=== PATIENT | female | born 1975 | race Hispanic/Latino ===

== ENCOUNTER 2022-05-31 19:53 | Emergency (ER) | payer BC ==
[2022-05-31] MEDS ORDERED: Ibuprofen 800 MG TAB ONE (21:16)
== END 2022-05-31 21:24 | disposition home or self-care (01) ==
LOC: ERS 19:53
DX: U07.1 COVID-19 (principal)
CPT/HCPCS: 87804; 99283; U0003; U0005

== ENCOUNTER 2022-07-01 16:56 | Emergency (ER) | payer BC ==
[2022-07-01] MEDS ORDERED: diphenhydrAMINE 50 MG/ML VIAL ONE (17:37)
[2022-07-01] MEDS ORDERED: Metoclopramide HCl 10 MG/2 ML VIAL ONE (17:37)
[2022-07-01] MEDS ORDERED: Magnesium 2 GM/50 ML BAG (IN WATER) ONE (17:37)
[2022-07-01 17:50] LABS: #Lymphocytes 3.2 thou/uL (1.20-3.40); #Monocytes 0.6 thou/uL (0.11-0.59); #Neutrophils 6.7 thou/uL (1.40-6.50); %Basophils 0.4 % (0.0-1.0); %Eosinophils 8.7 % (0.0-10.0); %Lymphocytes 27.4 % (21.0-51.0); %Monocytes 5.4 % (0.0-10.0); %Neutrophils 58.1 % (42.0-75.0); Hemoglobin 14.5 g/dL (12.0-16.0); Mean Corpuscular HGB CONC 35.7 g/dL (32.0-36.0); Mean Corpuscular Hemoglobin 32.8 pg (27.0-31.0); Mean Corpuscular Volume 91.8 fL (78.0-98.0); Platelet Count 267 thou/uL (130-400); RBC Distribution Width 11.6 % (11.5-14.5); Red Blood Cell (RBC) Count 4.41 mill/uL (4.20-5.40); White Blood Cell (WBC) Count 11.5 thou/uL (4.8-10.8)
[2022-07-01 18:09] LABS: ALT (SGPT) 81 U/L (8-55); AST (SGOT) 53 U/L (5-34); Albumin 3.9 g/dL (3.5-5.0); Alkaline Phosphatase 59 U/L (40-110); Anion Gap 14 mmol/L (10-20); BUN (Urea Nitrogen) 16 mg/dL (7.0-18.7); Bilirubin, Total 0.4 mg/dL (0.2-1.2); Calc. Creatinine Clearance 0 mL/min (70-130); Calcium 9.1 mg/dL (7.8-10.44); Carbon Dioxide 23 mmol/L (22-29); Chloride 104 mmol/L (98-107); Estimated GFR 105; Glucose 117 mg/dL (70-105); Potassium 3.8 mmol/L (3.5-5.1); Protein, Total 7.9 g/dL (6.0-8.3); Sodium 137 mmol/L (136-145)
[2022-07-01 18:10] LABS: BHCG - Serum Negative (NEGATIVE); Pregs Control Background? CLEAR/WHITE (CLR/WHITE); Pregs Control Bar Appear? YES (CONTROL BAR)
== END 2022-07-01 20:00 | disposition home or self-care (01) ==
LOC: ERS 16:56
DX: R51.9 Headache, unspecified (principal); R79.89 Other specified abnormal findings of blood chemistry; Z86.16 Personal history of COVID-19; G44.52 New daily persistent headache (NDPH)
CPT/HCPCS: 70450; 80053; 84484; 84703; 85025; 85379; 86140; 93005; 96365; 96375; J1200; J2765; J3475

== ENCOUNTER 2022-07-04 03:33 | Inpatient (IN) | payer BC ==
[2022-07-04] MEDS ORDERED: Metoclopramide HCl 10 MG/2 ML VIAL ONE (05:00)
[2022-07-04] MEDS ORDERED: Midazolam HCl 2 mg/2 ml Vial ONE ×2 (05:00→07:16)
[2022-07-04] MEDS ORDERED: Ketorolac Tromethamine 30 MG/ML VIAL ONE (05:00)
[2022-07-04] MEDS ORDERED: Magnesium 2 GM/50 ML BAG (IN WATER) ONE (07:26)
[2022-07-04 07:47] LABS: ALT (SGPT) 95 U/L (8-55); AST (SGOT) 72 U/L (5-34); Albumin 3.9 g/dL (3.5-5.0); Alkaline Phosphatase 71 U/L (40-110); Anion Gap 15 mmol/L (10-20); BUN (Urea Nitrogen) 15 mg/dL (7.0-18.7); Bilirubin, Total 0.3 mg/dL (0.2-1.2); Calc. Creatinine Clearance 0 mL/min (70-130); Calcium 9.5 mg/dL (7.8-10.44); Carbon Dioxide 26 mmol/L (22-29); Chloride 102 mmol/L (98-107); Estimated GFR 102; Globulin 4.2 g/dL (2.4-3.5); Glucose 118 mg/dL (70-105); Lipase 103 U/L (8-78); Potassium 3.7 mmol/L (3.5-5.1); Protein, Total 8.1 g/dL (6.0-8.3); Sodium 139 mmol/L (136-145)
[2022-07-04 07:48] LABS: CKMB 1.4 ng/mL (0-6.6); Troponin I Less than 0.010 ng/mL (< 0.028)
[2022-07-04] MEDS ORDERED: acetaZOLAMIDE Sodium 500 mg Vial IVP SCH (08:45)
[2022-07-04 08:59] LABS: CSF, Glucose 58 mg/dl (40-70); CSF, Protein 24 mg/dL (15-40)
[2022-07-04 09:05] LABS: #Basophils 0.1 thou/uL (0.0-0.2); #Eosinphils 1.2 thou/uL (0.0-0.7); #Lymphocytes 4.6 thou/uL (1.20-3.40); #Monocytes 0.6 thou/uL (0.11-0.59); #Neutrophils 6.8 thou/uL (1.40-6.50); %Basophils 0.7 % (0.0-1.0); %Eosinophils 8.7 % (0.0-10.0); %Lymphocytes 34.5 % (21.0-51.0); %Monocytes 4.7 % (0.0-10.0); %Neutrophils 51.3 % (42.0-75.0); Hemoglobin 15.3 g/dL (12.0-16.0); Mean Corpuscular HGB CONC 35.1 g/dL (32.0-36.0); Mean Corpuscular Hemoglobin 32.3 pg (27.0-31.0); Mean Corpuscular Volume 92.2 fL (78.0-98.0); Mean Platelet Volume 8.2 fL (7.4-10.4); Platelet Count 271 thou/uL (130-400); RBC Distribution Width 11.7 % (11.5-14.5); Red Blood Cell (RBC) Count 4.72 mill/uL (4.20-5.40); White Blood Cell (WBC) Count 13.3 thou/uL (4.8-10.8)
[2022-07-04 09:21] LABS: CSF RBC Count - Manual 0 /cu.mm (None Seen); CSF Source CSF; CSF WBC/NonHematics Count-Man 0 /cu.mm (0-5); Clarity Clear (Clear); Tube # 2
[2022-07-04 09:22] LABS: CSF RBC Count - Manual 0 /cu.mm (None Seen); CSF Source CSF; CSF WBC/NonHematics Count-Man 0 /cu.mm (0-5); Clarity Clear (Clear); Tube # 4
[2022-07-04 09:24] LABS: Troponin I Less than 0.010 ng/mL (< 0.028)
[2022-07-04 10:24] LABS: Color Of CSF Supernatant COLORLESS (Colorless); Tube # 1; Unspun CSF Color COLORLESS (Colorless)
[2022-07-04] MEDS ORDERED: Ondansetron ODT 4 MG TAB PO PRN (10:44)
[2022-07-04 11:42] VITALS: BMI 35.3
[2022-07-04 12:33] LABS: Troponin I Less than 0.010 ng/mL (< 0.028)
[2022-07-04] MEDS ORDERED: HYDROcodone/Acetaminophen 5/325 mg Tablet PO PRN (13:37)
[2022-07-04] MEDS ORDERED: Morphine 2 MG/ML VIAL SLOW IVP SCH (13:45)
[2022-07-04] MEDS ORDERED: Iopamidol-370 76% 500 ML 1 ML ONE (14:01)
[2022-07-04] MEDS: HYDROcodone/Acetaminophen 5/325 mg Tablet PO PRN (16:18)
[2022-07-04] MEDS: acetaZOLAMIDE Sodium 500 mg Vial IVP SCH (21:46)
[2022-07-04] MEDS: Sterile Water 10 ML VIAL IVP SCH (21:46)
[2022-07-04] MEDS: Acetaminophen 325 MG TAB PO PRN (21:55)
[2022-07-05 04:29] LABS: #Lymphocytes 2.2 thou/uL (1.20-3.40); #Monocytes 0.5 thou/uL (0.11-0.59); #Neutrophils 7.7 thou/uL (1.40-6.50); %Basophils 0.3 % (0.0-1.0); %Eosinophils 8.6 % (0.0-10.0); %Lymphocytes 19.2 % (21.0-51.0); %Monocytes 4.6 % (0.0-10.0); %Neutrophils 67.3 % (42.0-75.0); Hemoglobin 14.8 g/dL (12.0-16.0); Mean Corpuscular HGB CONC 33.8 g/dL (32.0-36.0); Mean Corpuscular Hemoglobin 31.6 pg (27.0-31.0); Mean Corpuscular Volume 93.4 fL (78.0-98.0); Mean Platelet Volume 7.6 fL (7.4-10.4); Platelet Count 284 thou/uL (130-400); Red Blood Cell (RBC) Count 4.67 mill/uL (4.20-5.40); White Blood Cell (WBC) Count 11.4 thou/uL (4.8-10.8)
[2022-07-05 04:54] LABS: Albumin 3.8 g/dL (3.5-5.0); Anion Gap 11 mmol/L (10-20); BUN (Urea Nitrogen) 8 mg/dL (7.0-18.7); Bilirubin, Total 0.5 mg/dL (0.2-1.2); Calc. Creatinine Clearance 119 mL/min (70-130); Calcium 9.4 mg/dL (7.8-10.44); Carbon Dioxide 24 mmol/L (22-29); Chloride 106 mmol/L (98-107); Estimated GFR 94; Glucose 119 mg/dL (70-105); Potassium 4.2 mmol/L (3.5-5.1); Protein, Total 7.4 g/dL (6.0-8.3); Sodium 137 mmol/L (136-145)
[2022-07-05 04:55] LABS: ALT (SGPT) 149 U/L (8-55); AST (SGOT) 82 U/L (5-34); Alkaline Phosphatase 66 U/L (40-110); Globulin 3.6 g/dL (2.4-3.5)
[2022-07-05] MEDS: acetaZOLAMIDE Sodium 500 mg Vial IVP SCH ×2 (08:47→20:51)
[2022-07-05] MEDS: HYDROcodone/Acetaminophen 5/325 mg Tablet PO PRN (08:48)
[2022-07-05] MEDS: Sterile Water 10 ML VIAL IVP SCH ×2 (08:48→20:52)
[2022-07-05] MEDS: Acetaminophen 325 MG TAB PO PRN ×2 (13:19→20:51)
[2022-07-05] MEDS ORDERED: Prochlorperazine 10 MG/2 ML VIAL IVP SCH (14:45)
[2022-07-05] MEDS ORDERED: diphenhydrAMINE 50 MG/ML VIAL IVP SCH (15:00)
[2022-07-06 05:13] LABS: Anion Gap 12 mmol/L (10-20); BUN (Urea Nitrogen) 14 mg/dL (7.0-18.7); Calc. Creatinine Clearance 108 mL/min (70-130); Calcium 9.3 mg/dL (7.8-10.44); Carbon Dioxide 22 mmol/L (22-29); Chloride 109 mmol/L (98-107); Estimated GFR 84; Glucose 115 mg/dL (70-105); Potassium 3.9 mmol/L (3.5-5.1); Sodium 139 mmol/L (136-145)
[2022-07-06] MEDS: Fioricet 325/50/40 mg Tablet PO PRN ×4 (05:44→21:20)
[2022-07-06] MEDS: acetaZOLAMIDE Sodium 500 mg Vial IVP SCH ×2 (08:47→21:15)
[2022-07-06] MEDS: Sterile Water 10 ML VIAL IVP SCH ×2 (08:50→21:16)
[2022-07-06] MEDS: Ondansetron PF 4 MG/2 ML Vial IVP PRN (09:50)
[2022-07-06] MEDS ORDERED: Iopamidol-370 76% 500 ML 1 ML ONE (10:47)
[2022-07-06] MEDS ORDERED: Enoxaparin Sodium 40 MG/0.4 ML SYRINGE SC SCH (21:00)
[2022-07-06] MEDS: Ibuprofen 800 MG TAB PO PRN (21:13)
[2022-07-07] MEDS ORDERED: Fluticasone Propionate Nasal Spray 16 gm Bottle NASAL SCH (09:00)
[2022-07-07] MEDS: Ibuprofen 800 MG TAB PO PRN ×2 (10:00→18:33)
[2022-07-07] MEDS: Fioricet 325/50/40 mg Tablet PO PRN ×3 (10:01→18:33)
[2022-07-07] MEDS: Ondansetron PF 4 MG/2 ML Vial IVP PRN (10:05)
[2022-07-07] MEDS: acetaZOLAMIDE Sodium 500 mg Vial IVP SCH (11:05)
[2022-07-07] MEDS: Sterile Water 10 ML VIAL IVP SCH (11:08)
[2022-07-07 15:46] VITALS: BP 114/63; TEMP 97.7
== END 2022-07-07 18:50 | disposition home or self-care (01) | DRG 103 ==
LOC: ERS 03:33 → 2SW 08:33 → OBSVTOIN 07-06 18:10
PROVIDERS: ADMIT Hospitalist; ATTEND Hospitalist
PROC: 009U3ZX Drainage of Spinal Canal, Percutaneous Approach, Diagnostic (ICD-10-PCS; principal; 2022-07-06)
PROC: B01B1ZZ Fluoroscopy of Spinal Cord using Low Osmolar Contrast (ICD-10-PCS; 2022-07-06)
DX: G93.2 Benign intracranial hypertension (principal); R07.89 Other chest pain; R74.01 Elevation of levels of liver transaminase levels; Z82.3 Family history of stroke; Z82.49 Family history of ischemic heart disease and other diseases of the circulatory system; Z90.49 Acquired absence of other specified parts of digestive tract; Z83.3 Family history of diabetes mellitus; Z90.710 Acquired absence of both cervix and uterus; Z86.16 Personal history of COVID-19; Z87.01 Personal history of pneumonia (recurrent)
CPT/HCPCS: 36415; 70496; 70551; 71045; 71275; 76705; 80048; 80053; 82553; 82945; 83690; 83880; 84157; 84484; 85025; 87070; 87205; 89051; 93005; 96375; 96376; G0378; J0780; J1120; J1200; J1650; J1885; J2250; J2270; J2405; J2765; J3475; Q0162; Q9967; U0003; U0005

== ENCOUNTER 2023-07-03 22:37 | Inpatient (IN) | payer BC ==
[2023-07-04 00:03] LABS: BHCG - Serum Negative (NEGATIVE); Pregs Control Background? CLEAR/WHITE (CLR/WHITE); Pregs Control Bar Appear? YES (CONTROL BAR)
[2023-07-04] MEDS ORDERED: Aspirin Chewable 81 MG TAB ONE (00:03)
[2023-07-04] MEDS ORDERED: Acetaminophen 500 MG TAB ONE (00:03)
[2023-07-04 00:05] LABS: SARS-CoV-2 NAA Rapid Test Not Detected (NotDetected)
[2023-07-04 00:11] LABS: Delete Auto Diff?? YES; Hemoglobin 13.7 g/dL (12.0-16.0); Manual Diff?? YES; Mean Corpuscular HGB CONC 34.9 g/dL (32.0-36.0); Mean Corpuscular Hemoglobin 31.1 pg (27.0-31.0); Mean Corpuscular Volume 89.1 fl (78.0-98.0); Mean Platelet Volume 9.9 fL (7.4-10.4); Platelet Count 292 10x3/uL (130-400); RBC Distribution Width 12.7 % (11.5-14.5); Red Blood Cell (RBC) Count 4.41 mill/uL (4.20-5.40); White Blood Cell (WBC) Count 13.1 10x3/uL (4.8-10.8)
[2023-07-04] MEDS ORDERED: Metoclopramide HCl 10 MG/2 ML VIAL ONE (00:12)
[2023-07-04 00:19] LABS: ALT (SGPT) 55 U/L (8-55); AST (SGOT) 35 U/L (5-34); Albumin 3.8 g/dL (3.5-5.0); Alkaline Phosphatase 64 U/L (40-110); Anion Gap 14 mmol/L (10-20); BUN (Urea Nitrogen) 16 mg/dL (7.0-18.7); Bilirubin, Total 0.2 mg/dL (0.2-1.2); Calc. Creatinine Clearance 0 mL/min (70-130); Carbon Dioxide 22 mmol/L (22-29); Chloride 106 mmol/L (98-107); Estimated GFR 107; Globulin 3.4 g/dL (2.4-3.5); Glucose 108 mg/dL (70-105); Potassium 3.6 mmol/L (3.5-5.1); Protein, Total 7.2 g/dL (6.0-8.3); Sodium 138 mmol/L (136-145)
[2023-07-04 00:40] LABS: Band 2 % (5-11); CellaVision Operator ID LAB.JMM; Eosinophils 2 % (0-10); Lymphocytes 23 % (21-51); Monocytes 5 % (0-10); Neutrophil 65 % (42-75); Platelet Adequacy Comment Platelets Normal; RBC Morphology Within Normal Limits; Reactive Lymphocytes 2 % (0-10); Total Cell Count 100
[2023-07-04] MEDS ORDERED: AcetaZOLAMIDE 250 MG TAB PO SCH (01:00)
[2023-07-04] MEDS ORDERED: diphenhydrAMINE 50 MG/ML VIAL ONE (02:12)
[2023-07-04] MEDS ORDERED: Ketorolac Tromethamine 30 MG/ML VIAL ONE (02:12)
[2023-07-04] MEDS ORDERED: diphenhydrAMINE 12.5 MG/5 ML UDCUP ONE (02:12)
[2023-07-04] MEDS ORDERED: Magnesium 2 GM/50 ML BAG (IN WATER) ONE (02:12)
[2023-07-04] MEDS ORDERED: Fioricet 325/50/40 mg Tablet PO PRN (02:40)
[2023-07-04] MEDS ORDERED: HYDROcodone/Acetaminophen 5/325 mg Tablet PO PRN (02:43)
[2023-07-04] MEDS ORDERED: Ondansetron PF 4 MG/2 ML Vial IVP PRN (02:43)
[2023-07-04] MEDS ORDERED: Acetaminophen 325 MG TAB PO PRN (02:43)
[2023-07-04 05:38] VITALS: BMI 40.3
[2023-07-04 06:32] LABS: #Eosinphils 0.6 thou/uL (0.0-0.7); #Monocytes 0.9 thou/uL (0.11-0.59); #Neutrophils 6.8 thou/uL (1.40-6.50); %Basophils 0.3 % (0.0-1.0); %Eosinophils 4.9 % (0.0-10.0); %Lymphocytes 32.7 % (21.0-51.0); %Monocytes 6.9 % (0.0-10.0); %Neutrophils 54.8 % (42.0-75.0); Hemoglobin 13.2 g/dL (12.0-16.0); Mean Corpuscular HGB CONC 33.5 g/dL (32.0-36.0); Mean Corpuscular Hemoglobin 30.8 pg (27.0-31.0); Mean Platelet Volume 10.2 fL (7.4-10.4); Platelet Count 271 10x3/uL (130-400); Red Blood Cell (RBC) Count 4.28 mill/uL (4.20-5.40); White Blood Cell (WBC) Count 12.5 10x3/uL (4.8-10.8)
[2023-07-04 06:55] LABS: Mean Corpuscular Volume 92.1 fl (78.0-98.0)
[2023-07-04 07:04] LABS: ALT (SGPT) 54 U/L (8-55); AST (SGOT) 34 U/L (5-34); Albumin 3.5 g/dL (3.5-5.0); Alkaline Phosphatase 55 U/L (40-110); Anion Gap 11 mmol/L (10-20); BUN (Urea Nitrogen) 11 mg/dL (7.0-18.7); Bilirubin, Total 0.4 mg/dL (0.2-1.2); Calc. Creatinine Clearance 127 mL/min (70-130); Calcium 8.4 mg/dL (7.8-10.44); Carbon Dioxide 22 mmol/L (22-29); Chloride 108 mmol/L (98-107); Estimated GFR 107; Globulin 3.1 g/dL (2.4-3.5); Glucose 86 mg/dL (70-105); Potassium 3.4 mmol/L (3.5-5.1); Protein, Total 6.6 g/dL (6.0-8.3); Sodium 138 mmol/L (136-145)
[2023-07-04 08:19] LABS: Amphetamine Not Detected (NotDetected); Barbiturates Screen Not Detected (NotDetected); Benzodiazepine Screen Not Detected (NotDetected); Cocaine Metabolite Screen Not Detected (NotDetected); Methadone Not Detected (NotDetected); Methamphetamine Not Detected (NotDetected); Opiate Screen Not Detected (NotDetected); Oxycodone Screen Not Detected (NotDetected); Phencyclidine (PCP) Not Detected (NotDetected); THC/Cannabinoid Screen Not Detected (NotDetected); Tricyclic Screen Not Detected (NotDetected)
[2023-07-04] MEDS: acetaZOLAMIDE Sodium 500 mg Vial IVP SCH ×2 (10:47→21:00)
[2023-07-05] MEDS: acetaZOLAMIDE Sodium 500 mg Vial IVP SCH (10:42)
[2023-07-05 12:58] VITALS: BP 117/72; TEMP 97.8
== END 2023-07-05 14:08 | disposition home or self-care (01) | DRG 103 ==
LOC: ERS 22:37 → SURG A 07-04 02:24 → OBSVTOIN 07-04 12:30
PROVIDERS: ADMIT Internal Medicine Nephrology; ATTEND Internal Medicine
DX: R51.9 Headache, unspecified (principal); R11.2 Nausea with vomiting, unspecified; H53.8 Other visual disturbances; G93.2 Benign intracranial hypertension; Z88.8 Allergy status to other drugs, medicaments and biological substances; Z20.822 Contact with and (suspected) exposure to COVID-19; Z90.49 Acquired absence of other specified parts of digestive tract; Z87.442 Personal history of urinary calculi; Z90.710 Acquired absence of both cervix and uterus
CPT/HCPCS: 36415; 70450; 70551; 71045; 80053; 80306; 84484; 84703; 85025; 93005; 96365; 96367; 96375; G0378; J1120; J1200; J1885; J2765; J3475; Q0163